=== PATIENT | male | born 1970 | race African-American/Black ===

== ENCOUNTER 2021-02-28 10:07 | Inpatient (IN) | payer OTHER ==
[~2021-02-28] VITALS: Ht 175.3 cm; Wt 87.0 kg
--- NOTE | 2021-02-28 10:20 | NUR ---
PT SOMEWHAT FOCUSED AFTER MEDICATION. "I DON'T WANT TO , PLEASE HELP ME" PT REASSURED AND REORIENTED TO SURROUNDINGS. PT DENIES PAIN AT THIS TIME. CONFUSED, AND REPEATS QUESTIONS. 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
--- NOTE | 2021-02-28 10:26 | NUR ---
REQUEST SENT TO PHARMACY FOR AMNIODARONE. AT BEDSIDE. PT TALKING, ANXIOUS.
[2021-02-28] MEDS ORDERED: LORazepam 2 MG/ML, 1ML IVPush ONE (10:30)
[2021-02-28] MEDS ORDERED: SODIUM CHLORIDE FLUSH 10ML SYR IVF ONE (10:30)
[2021-02-28] MEDS ORDERED: AMIODARONE 150 MG in DEXTROSE 5% 100 ML IV ONE (10:30)
[2021-02-28] MEDS ORDERED: METOPROLOL 1 MG/ML, 5ML IVPush ONE (11:00)
[2021-02-28] MEDS ORDERED: VANCOMYCIN PER PHARMACY MC ONE (11:00)
[2021-02-28] MEDS ORDERED: FILTER 0.22 MICRON IV SCH (11:00)
[2021-02-28] MEDS ORDERED: PIPERACILLIN/TAZO 3.375 GM in DEXTROSE 5% 50 ML IVPB ONE (11:00)
[2021-02-28] MEDS ORDERED: SODIUM CHLORIDE 0.9% 1,000ML IVBOLUS ONE (11:00)
--- NOTE | 2021-02-28 11:01 | NUR ---
RETURN FROM CT, 2 IV STARTS, LABS DRAWN. AMIODARONE FROM PHARM. REMAINS AT BEDSIDE.
[2021-02-28] MEDS ORDERED: METOPROLOL 1 MG/ML, 5ML ONE (11:11)
[2021-02-28 11:26] LABS: ALANINE AMINOTRANSFERASE 419 U/L (12-78); ALBUMIN 3.5 g/dL (3.4-5.0); ANION GAP 17 mmol/L (5-15); CALCIUM 9.2 mg/dL (8.5-10.1); CHLORIDE 106 mmol/L (98-107); CREATININE 1.52 mg/dL (0.7-1.3); MEAN CORPUSCULAR HEMOGLOBIN 28.6 pg (27.5-34.5); MEAN CORPUSCULAR HGB CONC 32.7 g/dL (33.2-36.2); PLATELET COUNT 447 x10^3/uL (130-400); RED BLOOD COUNT 4.88 x10^6/uL (4.38-5.82); RED CELL DISTRIBUTION WIDTH 15.1 % (9.4-14.8)
[2021-02-28 11:28] LABS: INTERNATIONAL NORMALIZED RATIO 0.99 (0.93-1.1); PROTHROMBIN TIME 10.6 Seconds (9.6-11.5)
[2021-02-28 11:30] LABS: ALKALINE PHOSPHATASE 125 U/L (45-117); BILIRUBIN,TOTAL 0.5 mg/dL (0.2-1.0); TOTAL PROTEIN 7.3 g/dL (6.4-8.2)
[2021-02-28] MEDS ORDERED: METOPROLOL SUCCINATE 50 MG TAB.ER.24H PO SCH (11:30)
[2021-02-28] MEDS ORDERED: VANCOMYCIN 2,000 MG in SODIUM CHLORIDE 0.9% 500 ML IV ONE (11:30)
[2021-02-28] MEDS ORDERED: ASPIRIN 81 MG TABLET CHEW PO ONE (11:30)
[2021-02-28] MEDS ORDERED: MIDAZOLAM 1 MG/ML, 2ML ONE (11:33)
[2021-02-28] MEDS ORDERED: LIDOCAINE 1%, 20ML ONE (11:33)
[2021-02-28] MEDS ORDERED: FENTANYL PF 100 MCG/2ML ONE (11:33)
[2021-02-28] MEDS ORDERED: BIVALIRUDIN 250 MG ONE (11:33)
[2021-02-28] MEDS ORDERED: VERAPAMIL 2.5 MG/ML, 2ML ONE (11:33)
[2021-02-28 11:39] LABS: TROPONIN I 0.695 ng/mL (0.000-0.045)
[2021-02-28] MEDS: AMIODARONE 450 MG in DEXTROSE 5% 241 ML IV PRN ×2 (11:41→19:30)
[2021-02-28 11:49] LABS: BAND#(MANUAL) 2.22 x10^3/uL; BANDS%(MANUAL) 8 % (0-7); LYMPH#(MANUAL) 1.11 x10^3/uL (1-3.4); LYMPHS% (MANUAL) 4 % (22-44); METAMYELOCYTES# (MANUAL) 0.28 x10^3/uL (0-0); METAMYELOCYTES% (MANUAL) 1 % (0-1); MONOS#(MANUAL) 1.67 x10^3/uL (0.3-2.7); MONOS% (MANUAL) 6 % (2-9); SEG#(MANUAL) 22.52 x10^3/uL (1.8-6.8); SEGS% (MANUAL) 81 % (42-75)
[2021-02-28 11:50] LABS: <PLATELET ESTIMATE> INCREASED; <PLT MORPHOLOGY> NORMAL PLT MORPH; <RBC MORPHOLOGY> NORMAL
--- NOTE | 2021-02-28 12:04 | NUR ---
BEDSIDE REPORT TO ANIKA DICKENS FROM PROGRAMMER ANALYST. PT TAKEN TO PROGRAMMER ANALYST WITH INFUSIONS STILL INFUSING.
[2021-02-28] MEDS ORDERED: LORazepam 2 MG/ML, 1ML ONE (12:14)
[2021-02-28] MEDS ORDERED: HEPARIN 1,000 UNITS/ML, 10ML ONE (12:31)
[2021-02-28] MEDS ORDERED: CLOPIDOGREL 300 MG TABLET ONE (13:08)
[2021-02-28] MEDS: SODIUM CHLORIDE 0.9% 1,000 ML IV SCH ×2 (13:30→21:39)
[2021-02-28] MEDS ORDERED: POTASSIUM CHLORIDE 20 MEQ TAB.ER.PRT PO ONE (14:30)
[2021-02-28] MEDS ORDERED: DOCUSATE 100 MG CAPSULE PO PRN (14:30)
[2021-02-28] MEDS ORDERED: ACETAMINOPHEN 325 MG TABLET PO PRN (14:30)
[2021-02-28] MEDS ORDERED: MELATONIN 5 MG TABLET PO PRN (14:30)
[2021-02-28] MEDS ORDERED: LABETALOL 5MG/ML, 20ML IVPush PRN (14:30)
[2021-02-28] MEDS ORDERED: ONDANSETRON 2MG/ML, 2ML IVPush PRN (14:30)
[2021-02-28] MEDS ORDERED: hydrALAzine 20 MG/ML, 1ML IVPush PRN (14:30)
[2021-02-28] MEDS: morphine SULFATE 10 MG/ML, 1ML IVPush PRN ×3 (15:26→21:43)
[2021-02-28 15:33] LABS: FREE T4 (FREE THYROXINE) 1.37 ng/dL (0.76-1.46)
[2021-02-28 16:17] LABS: ALANINE AMINOTRANSFERASE 389 U/L (12-78); ALBUMIN 3.7 g/dL (3.4-5.0); ANION GAP 10 mmol/L (5-15); CALCIUM 8.6 mg/dL (8.5-10.1); CHLORIDE 109 mmol/L (98-107); CREATININE 1.42 mg/dL (0.7-1.3)
[2021-02-28 16:20] LABS: ALKALINE PHOSPHATASE 105 U/L (45-117); TOTAL PROTEIN 7.3 g/dL (6.4-8.2)
[2021-02-28] MEDS: ASPIRIN 81 MG TABLET CHEW PO SCH (16:27)
[2021-02-28] MEDS: METOPROLOL TARTRATE 25 MG TAB PO SCH (16:42)
[2021-02-28] MEDS: HEPARIN 5,000 UNITS/ML, 1ML SQ SCH (16:43)
[2021-02-28] MEDS: INSULIN LISPRO 100 UNITS/ML, PEN SQ-INSULIN SCH ×2 (16:45→21:27)
[2021-02-28] MEDS ORDERED: FAMOTIDINE 20 MG/2 ML IVPush SCH (21:00)
[2021-02-28] MEDS: AMPICILLIN/SULBACTAM 3 GM in SODIUM CHLORIDE 0.9% 100 ML IV SCH (21:23)
[2021-02-28] MEDS: ATORVASTATIN 80 MG TABLET PO SCH (21:24)
[2021-02-28] MEDS: SODIUM CHLORIDE FLUSH 10ML SYR IVF SCH (21:24)
[2021-03-01] MEDS: METOPROLOL TARTRATE 25 MG TAB PO SCH (01:08)
[2021-03-01] MEDS: HEPARIN 5,000 UNITS/ML, 1ML SQ SCH ×4 (01:08→23:07)
[2021-03-01] MEDS: morphine SULFATE 10 MG/ML, 1ML IVPush PRN ×4 (01:09→12:44)
[2021-03-01] MEDS: SODIUM CHLORIDE 0.9% 1,000 ML IV SCH (03:37)
[2021-03-01] MEDS: AMPICILLIN/SULBACTAM 3 GM in SODIUM CHLORIDE 0.9% 100 ML IV SCH ×3 (04:39→21:30)
[2021-03-01 04:41] LABS: MEAN CORPUSCULAR HEMOGLOBIN 28.5 pg (27.5-34.5); MEAN CORPUSCULAR HGB CONC 33.1 g/dL (33.2-36.2); MEAN PLATELET VOLUME 7.7 fL (7.4-10.4); PLATELET COUNT 387 x10^3/uL (130-400); RED BLOOD COUNT 4.67 x10^6/uL (4.38-5.82); RED CELL DISTRIBUTION WIDTH 15.3 % (9.4-14.8)
[2021-03-01 04:49] LABS: ALANINE AMINOTRANSFERASE 268 U/L (12-78); ALBUMIN 3.3 g/dL (3.4-5.0); ANION GAP 8 mmol/L (5-15); CHLORIDE 109 mmol/L (98-107); CHOLESTEROL, TOTAL 188 mg/dL (140-239); CREATININE 0.92 mg/dL (0.7-1.3)
[2021-03-01 04:52] LABS: ALKALINE PHOSPHATASE 87 U/L (45-117); BILIRUBIN,TOTAL 1.3 mg/dL (0.2-1.0); CHOL/HDL RATIO 3.4; HDL CHOL % 29 % (26-37); HDL CHOLESTEROL (DIRECT) 55 mg/dL (40-60); LDL CHOLESTEROL,CALCULATED 114 mg/dL (54-169); LDL/HDL RATIO 2.1 (0.5-3.0); TOTAL PROTEIN 6.4 g/dL (6.4-8.2); TRIGLYCERIDES 94 mg/dL (50-200); VLDL CHOLESTEROL 19 mg/dL (0-25)
[2021-03-01 05:15] LABS: BAND#(MANUAL) 0.45 x10^3/uL; BANDS%(MANUAL) 2 % (0-7); LYMPH#(MANUAL) 2.45 x10^3/uL (1-3.4); LYMPHS% (MANUAL) 11 % (22-44); MONOS#(MANUAL) 1.12 x10^3/uL (0.3-2.7); MONOS% (MANUAL) 5 % (2-9); SEG#(MANUAL) 18.29 x10^3/uL (1.8-6.8); SEGS% (MANUAL) 82 % (42-75)
[2021-03-01 05:16] LABS: <PLATELET ESTIMATE> ADEQUATE; <PLT MORPHOLOGY> NORMAL PLT MORPH; <RBC MORPHOLOGY> NORMAL
[2021-03-01] MEDS: ASPIRIN 81 MG TABLET CHEW PO SCH (06:03)
[2021-03-01] MEDS: ASPIRIN 81 MG TABLET EC PO SCH (06:03)
[2021-03-01] MEDS ORDERED: POTASSIUM CHLORIDE 20 MEQ TAB.ER.PRT PO ONE (06:30)
[2021-03-01 06:32] LABS: CHLORIDE,URINE RANDOM 120 mmol/L; POTASSIUM,URINE RANDOM 44 mmol/L; SODIUM,URINE RANDOM 97 mmol/L
[2021-03-01 06:35] LABS: AMPHETAMINE SCREEN, URINE Negative (Negative); BARBITURATE SCREEN, URINE Negative (Negative); BENZODIAZEPINE SCREEN, URINE Positive (Negative); CANNABINOID SCREEN, URINE Positive (Negative); COCAINE SCREEN, URINE Negative (Negative); METHADONE SCREEN, URINE Negative (Negative); OPIATE SCREEN, URINE Positive (Negative); TOTAL PROTEIN,URINE RANDOM 81 mg/dL (0-12)
[2021-03-01] MEDS: INSULIN LISPRO 100 UNITS/ML, PEN SQ-INSULIN SCH ×4 (07:22→19:48)
[2021-03-01] MEDS: CLOPIDOGREL 75 MG TABLET PO SCH (07:45)
[2021-03-01] MEDS: FAMOTIDINE 20 MG TABLET PO SCH ×2 (07:45→19:49)
[2021-03-01] MEDS: LISINOPRIL 10 MG TABLET PO SCH ×2 (07:45→19:48)
[2021-03-01] MEDS: SODIUM CHLORIDE FLUSH 10ML SYR IVF SCH ×2 (07:46→19:49)
[2021-03-01] MEDS ORDERED: METOPROLOL TARTRATE 50 MG TAB PO SCH (08:00)
[2021-03-01] MEDS ORDERED: METOPROLOL 1 MG/ML, 5ML IVPush ONE (10:00)
[2021-03-01] MEDS: OXYcodone IR 5MG TABLET PO PRN ×2 (10:42→14:55)
[2021-03-01] MEDS: ISOSORBIDE MONONITRATE ER 30 MG TABLET PO SCH (10:43)
[2021-03-01] MEDS: AMIODARONE 200 MG TABLET PO SCH ×2 (10:44→19:49)
[2021-03-01] MEDS: SPIRONOLACTONE 25 MG TABLET PO SCH (10:44)
[2021-03-01] MEDS ORDERED: CEFAZOLIN PMX 1GM/50ML 50 ML IVPB ONE (11:00)
[2021-03-01 13:34] LABS: MICROSCOPIC INDICATED
[2021-03-01] MEDS: CARVEDILOL 25 MG TABLET PO SCH (17:06)
[2021-03-01] MEDS: ATORVASTATIN 80 MG TABLET PO SCH (19:48)
[2021-03-02] MEDS: OXYcodone IR 5MG TABLET PO PRN ×4 (01:58→21:21)
[2021-03-02 04:33] LABS: BASOPHILS % (AUTO) 0 % (0-1); EOSINOPHILS % (AUTO) 1 % (1-7); LYMPHOCYTES % (AUTO) 14 % (22-44); MEAN CORPUSCULAR HEMOGLOBIN 28.3 pg (27.5-34.5); MEAN CORPUSCULAR HGB CONC 33.2 g/dL (33.2-36.2); MEAN PLATELET VOLUME 8.1 fL (7.4-10.4); MONOCYTES % (AUTO) 9 % (2-9); NEUTROPHILS % (AUTO) 76 % (42-75); PLATELET COUNT 328 x10^3/uL (130-400); RED BLOOD COUNT 4.32 x10^6/uL (4.38-5.82); RED CELL DISTRIBUTION WIDTH 15.3 % (9.4-14.8)
[2021-03-02] MEDS: AMPICILLIN/SULBACTAM 3 GM in SODIUM CHLORIDE 0.9% 100 ML IV SCH ×3 (04:41→21:52)
[2021-03-02 04:48] LABS: ALBUMIN 2.9 g/dL (3.4-5.0); ANION GAP 7 mmol/L (5-15); CALCIUM 8.2 mg/dL (8.5-10.1); CHLORIDE 107 mmol/L (98-107)
[2021-03-02 04:51] LABS: ALANINE AMINOTRANSFERASE 178 U/L (12-78); ALKALINE PHOSPHATASE 70 U/L (45-117); BILIRUBIN,TOTAL 1.4 mg/dL (0.2-1.0); TOTAL PROTEIN 6.1 g/dL (6.4-8.2)
[2021-03-02] MEDS: ASPIRIN 81 MG TABLET CHEW PO SCH (05:21)
[2021-03-02] MEDS: ASPIRIN 81 MG TABLET EC PO SCH (05:25)
[2021-03-02] MEDS: CARVEDILOL 25 MG TABLET PO SCH ×2 (05:26→17:51)
[2021-03-02] MEDS ORDERED: POTASSIUM CHLORIDE 20 MEQ TAB.ER.PRT PO ONE (06:30)
[2021-03-02] MEDS: INSULIN LISPRO 100 UNITS/ML, PEN SQ-INSULIN SCH ×4 (07:58→21:52)
[2021-03-02] MEDS: HEPARIN 5,000 UNITS/ML, 1ML SQ SCH (08:00)
[2021-03-02] MEDS: CLOPIDOGREL 75 MG TABLET PO SCH (08:37)
[2021-03-02] MEDS: AMIODARONE 200 MG TABLET PO SCH (08:37)
[2021-03-02] MEDS: ISOSORBIDE MONONITRATE ER 30 MG TABLET PO SCH (08:37)
[2021-03-02] MEDS: FAMOTIDINE 20 MG TABLET PO SCH ×2 (08:37→21:20)
[2021-03-02] MEDS: SPIRONOLACTONE 25 MG TABLET PO SCH (08:37)
[2021-03-02] MEDS: LISINOPRIL 10 MG TABLET PO SCH ×2 (08:37→21:20)
[2021-03-02] MEDS: SODIUM CHLORIDE FLUSH 10ML SYR IVF SCH ×2 (08:38→21:22)
[2021-03-02] MEDS: SODIUM CHLORIDE 0.9% 1,000 ML IV SCH (10:31)
[2021-03-02] MEDS ORDERED: CEFAZOLIN PMX 1GM/50ML 50 ML IV ONE (11:36)
[2021-03-02] MEDS ORDERED: MIDAZOLAM 1 MG/ML, 5ML ONE (11:45)
[2021-03-02] MEDS ORDERED: FENTANYL PF 100 MCG/2ML ONE ×2 (11:45→12:32)
[2021-03-02] MEDS ORDERED: LIDOCAINE 2%, 20ML ONE (11:45)
[2021-03-02] MEDS ORDERED: CEFAZOLIN PMX 1GM/50ML 50 ML ONE ×2 (11:46→11:51)
[2021-03-02] MEDS ORDERED: CEFAZOLIN 1,000 MG ONE (11:46)
[2021-03-02] MEDS ORDERED: HOLD MEDICATION MC PRN (13:30)
[2021-03-02 20:00] VITALS: BP 119/81
[2021-03-02] MEDS: ATORVASTATIN 80 MG TABLET PO SCH (21:21)
[2021-03-03] VITALS (7 sets, daily range): BP systolic 124–146; BP diastolic 80–95
[2021-03-03] MEDS: OXYcodone IR 5MG TABLET PO PRN ×3 (04:39→20:46)
[2021-03-03 05:05] LABS: BASOPHILS % (AUTO) 0 % (0-1); EOSINOPHILS % (AUTO) 1 % (1-7); LYMPHOCYTES % (AUTO) 15 % (22-44); MEAN CORPUSCULAR HEMOGLOBIN 28.4 pg (27.5-34.5); MEAN CORPUSCULAR HGB CONC 33.1 g/dL (33.2-36.2); MEAN PLATELET VOLUME 8.4 fL (7.4-10.4); MONOCYTES % (AUTO) 10 % (2-9); NEUTROPHILS % (AUTO) 75 % (42-75); PLATELET COUNT 299 x10^3/uL (130-400); RED BLOOD COUNT 4.19 x10^6/uL (4.38-5.82); RED CELL DISTRIBUTION WIDTH 14.9 % (9.4-14.8)
[2021-03-03] MEDS: AMPICILLIN/SULBACTAM 3 GM in SODIUM CHLORIDE 0.9% 100 ML IV SCH ×3 (05:08→20:46)
[2021-03-03 05:25] LABS: CHLORIDE 106 mmol/L (98-107)
[2021-03-03 05:33] LABS: ANION GAP 9 mmol/L (5-15); CALCIUM 8.5 mg/dL (8.5-10.1); CREATININE 0.82 mg/dL (0.7-1.3)
[2021-03-03] MEDS: ASPIRIN 81 MG TABLET EC PO SCH (05:58)
[2021-03-03] MEDS: CARVEDILOL 25 MG TABLET PO SCH ×2 (05:59→17:45)
[2021-03-03] MEDS: INSULIN LISPRO 100 UNITS/ML, PEN SQ-INSULIN SCH ×4 (07:00→21:07)
[2021-03-03] MEDS: SODIUM CHLORIDE FLUSH 10ML SYR IVF SCH ×2 (09:00→20:46)
[2021-03-03] MEDS: AMIODARONE 200 MG TABLET PO SCH (09:30)
[2021-03-03] MEDS: FAMOTIDINE 20 MG TABLET PO SCH ×2 (09:30→20:46)
[2021-03-03] MEDS: LISINOPRIL 10 MG TABLET PO SCH ×2 (09:30→20:46)
[2021-03-03] MEDS: SPIRONOLACTONE 25 MG TABLET PO SCH (09:30)
[2021-03-03] MEDS: CLOPIDOGREL 75 MG TABLET PO SCH (09:30)
[2021-03-03] MEDS: ISOSORBIDE MONONITRATE ER 30 MG TABLET PO SCH (09:30)
[2021-03-03] MEDS: SODIUM CHLORIDE 0.9% 1,000 ML IV SCH (11:00)
[2021-03-03] MEDS: HEPARIN 5,000 UNITS/ML, 1ML SQ SCH ×2 (15:19→23:54)
[2021-03-03] MEDS: ATORVASTATIN 80 MG TABLET PO SCH (20:46)
[2021-03-04] MEDS: morphine SULFATE 10 MG/ML, 1ML IVPush PRN (03:01)
[2021-03-04] MEDS: ASPIRIN 81 MG TABLET EC PO SCH (05:31)
[2021-03-04] MEDS: CARVEDILOL 25 MG TABLET PO SCH (05:31)
[2021-03-04] MEDS: AMPICILLIN/SULBACTAM 3 GM in SODIUM CHLORIDE 0.9% 100 ML IV SCH ×2 (05:31→12:35)
[2021-03-04 06:33] VITALS: BP 146/89
[2021-03-04 08:05] VITALS: BP 149/91
[2021-03-04] MEDS: FAMOTIDINE 20 MG TABLET PO SCH (08:06)
[2021-03-04] MEDS: AMIODARONE 200 MG TABLET PO SCH (08:06)
[2021-03-04] MEDS: CLOPIDOGREL 75 MG TABLET PO SCH (08:06)
[2021-03-04] MEDS: HEPARIN 5,000 UNITS/ML, 1ML SQ SCH (08:06)
[2021-03-04] MEDS: SPIRONOLACTONE 25 MG TABLET PO SCH (08:07)
[2021-03-04] MEDS: ISOSORBIDE MONONITRATE ER 30 MG TABLET PO SCH (08:07)
[2021-03-04] MEDS: LISINOPRIL 10 MG TABLET PO SCH (08:07)
[2021-03-04] MEDS: OXYcodone IR 5MG TABLET PO PRN (08:13)
[2021-03-04] MEDS: INSULIN LISPRO 100 UNITS/ML, PEN SQ-INSULIN SCH ×2 (08:22→11:38)
[2021-03-04] MEDS: SODIUM CHLORIDE FLUSH 10ML SYR IVF SCH (08:31)
[2021-03-04] MEDS ORDERED: ASPI81TA45 PO (12:22)
[2021-03-04] MEDS ORDERED: SPIR25TA PO (12:22)
[2021-03-04] MEDS ORDERED: CLOP75TA PO (12:22)
[2021-03-04] MEDS ORDERED: LISI-167 PO (12:22)
[2021-03-04] MEDS ORDERED: CARV25TA12 PO (12:22)
[2021-03-04] MEDS ORDERED: AMIO200T42 PO (12:22)
[2021-03-04] MEDS ORDERED: ATOR-2 PO (12:22)
[2021-03-04] MEDS ORDERED: PANT40TA3 PO (12:22)
[2021-03-04 12:30] VITALS: BP 120/79
[2021-03-04] MEDS ORDERED: AMOX1TAB61 PO (15:07)
== END 2021-03-04 15:43 | disposition home or self-care (01) | DRG 222 ==
LOC: ED 11:48 → CCU 13:29 → 5SO 03-02 13:21
PROVIDERS: ADMIT Hospitalist; ATTEND Internal Medicine
PROC: 4A023N7 Measurement of Cardiac Sampling and Pressure, Left Heart, Percutaneous Approach (ICD-10-PCS; 2021-02-28)
PROC: 027034Z Dilation of Coronary Artery, One Artery with Drug-eluting Intraluminal Device, Percutaneous Approach (ICD-10-PCS; 2021-02-28)
PROC: B2111ZZ Fluoroscopy of Multiple Coronary Arteries using Low Osmolar Contrast (ICD-10-PCS; 2021-02-28)
PROC: B2181ZZ Fluoroscopy of Left Internal Mammary Bypass Graft using Low Osmolar Contrast (ICD-10-PCS; 2021-02-28)
PROC: 5A12012 Performance of Cardiac Output, Single, Manual (ICD-10-PCS; 2021-02-28)
PROC: B2131ZZ Fluoroscopy of Multiple Coronary Artery Bypass Grafts using Low Osmolar Contrast (ICD-10-PCS; 2021-02-28)
PROC: B2151ZZ Fluoroscopy of Left Heart using Low Osmolar Contrast (ICD-10-PCS; 2021-02-28)
PROC: 0JH608Z Insertion of Defibrillator Generator into Chest Subcutaneous Tissue and Fascia, Open Approach (ICD-10-PCS; principal; 2021-03-02)
PROC: 02HK3KZ Insertion of Defibrillator Lead into Right Ventricle, Percutaneous Approach (ICD-10-PCS; 2021-03-02)
DX: I21.4 Non-ST elevation (NSTEMI) myocardial infarction (principal); I49.01 Ventricular fibrillation; J96.01 Acute respiratory failure with hypoxia; J18.9 Pneumonia, unspecified organism; I46.2 Cardiac arrest due to underlying cardiac condition; I50.22 Chronic systolic (congestive) heart failure; N17.9 Acute kidney failure, unspecified; E11.51 Type 2 diabetes mellitus with diabetic peripheral angiopathy without gangrene; E11.65 Type 2 diabetes mellitus with hyperglycemia; E78.5 Hyperlipidemia, unspecified; E87.6 Hypokalemia; F12.90 Cannabis use, unspecified, uncomplicated; I11.0 Hypertensive heart disease with heart failure; I25.10 Atherosclerotic heart disease of native coronary artery without angina pectoris; I25.5 Ischemic cardiomyopathy; I27.20 Pulmonary hypertension, unspecified; D72.829 Elevated white blood cell count, unspecified; I34.0 Nonrheumatic mitral (valve) insufficiency; Z82.49 Family history of ischemic heart disease and other diseases of the circulatory system; Z95.1 Presence of aortocoronary bypass graft; Z95.5 Presence of coronary angioplasty implant and graft; Z95.810 Presence of automatic (implantable) cardiac defibrillator; Z87.891 Personal history of nicotine dependence; I25.2 Old myocardial infarction
CPT/HCPCS: 33216; 36005; 36415; 70450; 71045; 76700; 80048; 80053; 80061; 80074; 80307; 81001; 82436; 82570; 82962; 83036; 83605; 83690; 83735; 83880; 84100; 84133; 84145; 84156; 84300; 84439; 84443; 84484; 85025; 85610; 87040; 87081; 87086; 93005; 93458; 96374; 96375; 99156; 99157; C1769; C1892; C1894; C1895; C8929; C9600; G0378; J0295; J0583; J0690; J1644; J2250; J2543; J3010; J3370; J7060; Q9957; C1722; C1725; C1874; C1887; J0282; J1815; J2060; J2270; J7030; J7040; Q9967